=== PATIENT | male | born 1960 | race Caucasian/White ===

== ENCOUNTER 2024-12-09 18:03 | Emergency (ER) | payer BC, SELFPAY ==
--- OUTSIDE RECORDS SUMMARY | 2024-12-09 18:06 | XMS_ITS | Clinical Summary ---
Author Organization [facility] Address [address] [place] [id number] Care Team Providers Care Lead Medical Technologist Name Role Phone Frandy Hunt MD Primary Care Provider [phone] Allergies Active Allergy Reactions Criticality Noted Date Comments Tolterodine *Unknown 12/19/2023 Trospium Other - Describe In Comment Field 04/12/2022 Cognitive deficit Medications aspirin (ECOTRIN) 81 mg enteric coated tablet Take 1 tablet by mouth once daily with a meal. 0 06/26/20 15 Active blood-glucose meterIndications:D iabetes mellitus type 2, uncomplicated (HC) Dispense meter, test strips, lancets covered by pt ins. E11.9 NIDDM type II - Test 1 time/day 1 Device 0 02/28/20 16 Active empagliflozin (JARDIANCE) 10 mg tabletIndications: Type 2 diabetes mellitus without complication, without long-term current use of insulin (HC) Take 1 Tablet (10 mg) by mouth once daily. Take in the morning. 90 Tablet 3 12/23/19 24 Active metFORMIN (GLUCOPHAGE) 1,000 mg tabletIndications: Type 2 diabetes mellitus without complication, without long-term current use of insulin (HC) Take 1 Tablet (1,000 mg) by mouth two times daily with meals. 180 Tablet 3 03/24/20 24 Active atorvastatin (LIPITOR) 10 mg tabletIndications: Other hyperlipidemia Take 1 Tablet (10 mg) by mouth once daily with evening meal. 90 Tablet 4 03/24/20 24 Active tadalafiL (CIALIS) 5 mg tabletIndications: Benign prostatic hyperplasia with urinary frequency Take 1 Tablet (5 mg) by mouth once daily. 90 Tablet 4 03/24/20 24 Active valACYclovir (VALTREX) 1 gram tabletIndications: Herpes TAKE TWO TABLETS BY MOUTH EVERY 12 HOURS FOR 1 DAY; Wait until they call for this. 12 Tablet 3 03/24/20 24 Active Additional Information Patient taking differently: BID PRN, TAKE TWO TABLETS BY MOUTH EVERY 12 HOURS FOR 1 DAY; Wait until they call for this., Reported on 12/06/2024 blood sugar diagnostic (True Metrix Glucose Test Strip) stripIndications:T ype 2 diabetes mellitus without complication, without long-term current use of insulin (HC) TEST DAILY 100 Each 3 03/24/20 24 Active triamcinolone 0.1 % ointmentIndication s:Dermatitis Apply topically to affected area(s) two times daily. Use for up to 2 weeks and take a week off and repeat. 80 g 2 03/24/20 Active Additional Information Patient taking differently:TopicalBID PRN, Use for up to 2 weeks and take a week off and repeat., Reported on 12/06/2024 loratadine-pseudoe phedrine (Claritin-D 12 Hour) 5-120 mg 12hr tablet Take 1 Tablet by mouth every 12 hours if needed. Active docusate 100 mg capsuleIndications :BPH with lower urinary tract symptoms without urinary obstruction Take 1 Capsule (100 mg) by mouth two times daily. 30 Capsule 12/07/2024 11:31 AM CDT 12/08/19 25 Active Active Problems Problem Noted Date Diagnosed Date Depression, recurrent 03/24/2024 Other hyperlipidemia 02/11/2018 ELVIS 05/12/2017 AHI-2.3, REM supine 23 05/26/2017 Primary osteoarthritis of both hips 05/14/2017 Type 2 diabetes mellitus wit hout complication, without long-term current use of insulin 04/03/2016 Overview (10/11/2022): Jardiance would be the diabetes drug to add if needed. Dysthymia 08/21/2015 Overview (08/06/2019): Seasonal Affective Disorder - he uses a light box for 30 minutes a day from March through August and this works well. This started in College. He has tried various SSRIs over an 8 year period and none of them helped. He tried other medications including effexor and wellbutrin that were not effective. He has worked with a therapist over the years but his therapist . He refuses to see a therapist today. Obstructive sleep apnea syndrome 08/21/2015 Overview (08/21/2015): He uses a CPAP machine. Benign nodular prostatic hyp erplasia with lower urinary tract symptoms 08/21/2015 Overview (03/24/2024): Flomax did not improve his symptoms and caused retrograde ejaculation. Scrotal skin lesion 08/05/2014 Adenomatous colon polyp 04/12/2013 Overview (04/25/2023): Colonoscopy 03/2013 polyps repeat in 5 years Colonoscopy 03/2018 normal, long coln, repeat in 5 years, PEG 8L Colonoscopy 04/2023 normal, long, repeat in 7-10 years, PEG 8L Resolved Problems Problem Noted Date Diagnosed Date Resolved Date Primary osteoarthritis of davon th hips with CAM impingement 12/15/2014 05/14/2017 Lumbar radicular pain 12/15/20142016 Encounters Date Type Department Care Team Description 12/06/2024 9:53 AM CDT Anesthesia Event [facility] [address] [place] [address] Caleb Dent MD Shea, Ryan Steven, JERRY 12/06/2024 9:08 AM CDT - 12/06/2024 10:57 AM CDT Surgery [facility] [address] [place] [address] Kevyn Seymour MD ROBOTIC AQUABLATION OF PROSTATE 12/06/2024 7:02 AM CDT - 12/07/2024 6:00 PM CDT Hospital Encounter [facility] [address] [place] [address] Kevyn Seymour MD BPH with lower urinary tract symptoms without urinary obstruction (Primary Dx) Discharge Disposition: Home Self Care 12/06/2024 Travel 12/03/2024 Travel 11/16/2024 Travel 11/09/2024 9:10 AM CDT Office Visit [facility] [address] [facility] [address] Frandy Hunt MD Preoperative Exam (Aquablation 12/07/2023) 11/09/2024 Travel 11/02/2024 8:20 AM CDT Office Visit [facility] [address] [facility] [address] Frandy Hunt MD Diabetes (Routine follow up) 11/02/2024 Travel 10/25/2024 7:15 AM CDT Orders Only [facility] [address] [place] [address] [place], [place] Lab 10/25/2024 Orders Only [facility] [address] [facility] [address] Frandy Hunt MD Lab ([id number] did not cross ) 10/25/2024 Travel 10/13/2024 Telephone [facility] [address] [facility] [address] Frandy Hunt MD Lab (Lab orders needed) from Last 3 Months Immunizations Immunization Administration Dates Next Due AMB INFLUENZA, IIV4 (AGE=>6M OS) MDV (Flu Clinic Only) 04/16/2017 COVID-19 vaccine (Lucio-J&J) PF, MDJackson 1 Influenza A (H1N1), Inactivated 06/29/2009 Influenza Virus, Unspecified 04/07/2020 Influenza, IIV3 (Age >=3 years) 04/17/2015,04/16,05/07/2010 Influenza, IIV4 05/20/2022, 1,04/12/2016,04/21,04/26/2013 Influenza, IIV4 (=>6mos) MDV 05/17/2019, 04/21/2018,04/10/2016,04/10 Influenza, Inactivated IIV3 (Age 65+ Years) Preserv Free 05/12/2024 Influenza, Injectable, Mdck, Quadrivalent, W/preservative 05/08/2023 Pneumococcal Conj 20-valent (Prevnar 20) 04/12/2022 Pneumococcal Poly,23-Valent (Pneumovax) 12/27/2020 RSV, Recombinant ADJ Reconst ituted (Arexvy 120MCG/0.5mL) 01/01/2024 Tdap 02/28/2016 Zoster (Shingrix-RZV, recombinant) 02/11/2018, Family History Medical History Relation Name Comments Dementia Father of non Alz heimer's dementia at 87 Diabetes Father Depression Half-Brother of suicide at 29 Lupus Half-Sister Depression Mother Obesity Mother Relation Name Status Comments Father (Age 87) Half-Brother Half-Sister Alive Mother Social History Tobacco Use Types Packs/Day Years Used Date Smoking Tobacco: Never Passive Smoke Exposure: Never Smokeless Tobacco: Never Tobacco Cessation:Counseling Given: No Alcohol Use Standard Drinks/Week Comments Yes 0 (1 standard drink = 0.6 oz pur e alcohol) rarely PHQ-2 Answer Date Recorded PHQ-2 TOTAL SCORE 2 03/24/2024 Social Connections Answer Date Recorded Do you often feel lonely or isolated from those around you? 0 12/23/2023 Alcohol Use Answer Date Recorded How often do you have a drink containing alcohol ? 2 12/23/2023 How many drinks containing a lcohol do you have on a typical day when you are drinking? 0 12/23/2023 How often do you have five or more drinks on one occasion? 0 12/23/2023 Financial Resource Strain Answer Date R ecorded Difficulty of Paying Living Expenses 3 12/23/2023 Difficulty of Paying Living Expenses Not on file 12/23/2023 Food Insecurity Answer Date Recorded Do you worry your food will run out before you are able to buy more? 1 12/23/2023 Transportation Needs Answer Date Record ed Does lack of transportation keep you from medica l appointments? 1 12/23/2023 Does lack of transportation keep you from work, meetings or getting things that you need? 1 12/23/2023 Housing Stability Answer Date Recorded What is your housing situation today? 1 12/23/2023 Interpersonal Safety Answer Date Record ed Are you being hit, kicked, p ushed or yelled at (see row info)? No 12/06/2024 Interpersonal Safety Abuse 12 - 18 Not on file 12/06/2024 Interpersonal Safety Ambulatory Vulnerability No t on file 12/06/2024 Utilities Answer Date Recorded Do you have trouble paying f or utilities (for example, heat, electricity, water, phone)? 1 12/23/2023 Sex and Gender Information Value Date Recorded Sex Assigned at Not on file Legal Sex Male 5:27 AM PROGRAM DIR Gender Identity Not on file Sexual Orientation Not on file Occupation Industry Job Start Date Job End Date IT Not on file Not on file Not on file Obstetrics History Last Filed Vital Signs Vital Sign Reading Time Taken Comments Blood Pressure 107/53 12/07/2024 7:00 AM CDT Pulse 65 12/07/2024 7:00 AM CDT Temperature 36.9 C (98.4 F) 12/07/2024 7:00 AM CDT Respiratory Rate 16 12/07/2024 4:00 PM CDT Oxygen Saturation 97% 12/07/2024 7:00 AM CDT Inhaled Oxygen Concentration - - Weight 79.8 kg (175 lb 14.4 oz) 12/06/2024 8:41 AM CDT Height 180.3 cm (5' 11) 12/06/2024 8:41 AM CDT Body Mass Index 24.53 12/06/2024 8:41 AM CDT Plan of Treatment Upcoming Encounters Date Type Department Care Team (Late st Contact Info) Description 12/15/2024 9:40 AM CDT Office Visit [facility] [address] [place] [address] Frandy Hunt MD [address] [place] [address] 03/08/2025 7:00 AM CDT Orders Only [facility] [address] [place] [address] [place], [place] 03/15/2025 7:30 AM CDT Office Visit [facility] [address] [place] [address] Frandy Hunt MD [address] [place] [address] Health Maintenance Due Date Last Done Comments COVID-19 vaccine series ( season) 2024 05/12/2024, 05/08/2023, 04/29/2022, Additional history exists Depression screening for age 12+ 03/24/2025 03/24/2024 BMI (ht and wt on same day) for age 18+ 11/09/2025 11/09/2024, 11/02/2024, 06/29/2024, Additional history exists Tetanus booster 02/27/2026 02/28/2016 Lipids for age 45-75 10/25/2029 10/25/2024, 03/19/2024, 12/19/2023, Additional history exists Colonoscopy through age 75 04/22/203004/22, 04/22/2023, 04/22/2023, Additional history exists Tdap Completed 02/28/2016 Zoster (shingles) series for age 50+ Completed 02/11/2018, 11/07/2017 Hepatitis C screening for age 18-79 Completed 10/01/2021 Pneumococcal series for age 50+ Completed 04/12/2022, 12/27/2020 RSV vaccine for adults or Completed 01/01/2024 Influenza Vaccine Completed 05/12/2024, , 05/20/2022, Additional history exists Hepatitis B series for 19+ Aged Out N o longer eligible based on patient's age to complete this topic Procedures Procedure Name Priority Date/Time Associated Diagnosis Comments GLUCOSE METER Timed 12/07/2024 6:08 AM CDT HEMOGLOBIN Early AM 12/07/2024 5:50 AM CDT GLUCOSE METER Timed 12/07/2024 2:40 AM CDT GLUCOSE METER Timed 12/06/2024 10:15 PM CDT GLUCOSE METER Timed 12/06/2024 8:47 PM CDT GLUCOSE METER Timed 12/06/2024 11:11 AM CDT PATH TISSUE EXAM Today 12/06/2024 10:43 AM CDT ENDOTRACHEAL TUBE Routine 12/06/2024 10:07 AM CDT ROBOTIC AQUABLATION OF PROSTATE Tier 2 12/06/2024 9:35 AM CDT Lower urinary tract symptoms due to benign prostatic hypertrophy Case Notes SUPINE GLUCOSE METER Timed 12/06/2024 8:27 AM CDT SCAN-CARDIAC STRIP 12/06/2024 12:00 AM CDT URINE ALBUMIN TO CREATININE RATIO, RANDOM Routine 10/25/2024 8:07 AM CDT Type 2 diabetes mellitus without complication, without long-term current use of insulin (HC) HEMOGLOBIN A1C MONITORING (POCT) Routine 10/25/2024 7:19 AM CDT Type 2 diabetes mellitus without complication, without long-term current use of insulin (HC) BASIC METABOLIC PANEL Routine 10/25/2024 7:11 AM CDT Type 2 diabetes mellitus without complication, without long-term current use of insulin (HC) LIPID PANEL W REFLEX MEASURED LDL Routine 10/25/2024 7:11 AM CDT Other hyperlipidemia VITAMIN B12 Routine 10/25/2024 7:11 AM CDT Type 2 diabetes mellitus without complication, without long-term current use of insulin (HC) COLONOSCOPY SCREENING Routine 04/22/2023 1:30 PM CDT History of colon polyps ANTI HCV Routine 10/01/2021 7:17 AM CDT Need for hepatitis C screening test from Last 3 Months or Most Recently Relevant to Health Maintenance Results * (ABNORMAL) GLUCOSE METER (12/07/2024 6:08 AM CDT) Only the most recent of6 resultswithin the time period is included. GLUCOSE METER 199(H) 65 - 100 mg/dL 12/07/2024 6:08 AM CDT [facility] Blood BLOOD SPECIMEN / Unknown 12/07/2024 6:08 AM CDT 12/07/2024 6:08 AM CDT Kevyn Seymour MD CHEMISTRY Final Res ult Performing Organization Address City/[facility]/ZIP Co de Phone Number [facility] [address] [place] [address], * (ABNORMAL) Hemoglobin (12/07/2024 5:50 AM CDT) HEMOGLOBIN 12.6(L) 13.5 - 17.5 g/dL 12/07/2024 6:14 AM CDT [facility] MCV 85 80 - 100 fL 12/07/2024 6:14 AM CDT [facility] Blood BLOOD SPECIMEN / Unknown Butterfly / Unknown 12/07/2024 5:50 AM CDT 12/07/2024 6:07 AM CDT Kevyn Seymour MD HEMATOLOGY Final Res ult Performing Organization Address [facility] Co de Phone Number [facility] [address] [place] [address], [place] * PATH TISSUE EXAM (12/06/2024 10:43 AM CDT) Case Report Pathology Report Case: [id number] Authorizing Provider: Kevyn Seymour MD Collected: 12/06/2024 1043 Ordering Location: [facility] Received: 12/06/2024 1053 [facility] Pathologist: Jaciel Patel MD Specimen: Prostate 12/07/2024 3:00 PM CDT [facility] Final Diagnosis A) PROSTATE, ROBOTIC AQUA ABLATION: 1. Nodular epithelial and stromal hyperplasia, consistent with benign prostatic hypertrophy 2. No atypical foci, high grade intraepithelial neoplasia, or malignancy 12/07/2024 3:00 PM CDT [facility] ENTRAL LABORATORY at 1500 CDT Clinical Information BPH 12/07/2024 3:00 PM CDT [facility] Gross Description A) Received in formalin, labeled with the patient's name and prostate, is a 2 gram, 2.5 x 2.3 x 1.3 cm aggregate of multiple alvarado rubbery cauterized tissue fragments admixed with blood clot. The tissue is entirely submitted in 2 cassettes. TRB 12/06/2024 12/07/2024 3:00 PM CDT [facility] ENTRAL LAB[facility]ATORY Microscopic Description The final diagnosis is based on microscopic examination of appropriate sections of all specimens. 12/07/2024 3:00 PM CDT [facility]- ENTRAL LABORATORY Additional Information Interpreted at [facility] - [address], [place] [address] 12/07/2024 3:00 PM CDT [facility] Tissue SPECIMEN FROM PROSTATE / Unknown 12/06/2024 10:43 AM CDT 12/06/2024 10:53 AM CDT Kevyn Seymour MD PATHOLOGY/CYTOLOGY Final Result [facility] [address] [place] [address], * HCHG TUBE PR1 (12/06/2024 10:07 AM CDT) Narrative Carloz Colbert CRNA - 12/06/2024 10:07 AM CDT Carloz Colbert CRNA 12/06/2024 10:08 AM Procedure: ETT Patient location during procedure: OR ETT Properties Mask Ventilation: easy Final Technique: direct laryngoscopy Type: straight Location: oral Cuffed: yes Tube Size: 7.5 mmno Laryngoscope Blade: Youngblood Blade Size: 2 Cormack-Lehane Grade View: 1 Insertion Attempts: 1 Placement Verification: auscultation, end tidal CO2 and symmetrical chest wall movement Assessment: pharynx clear, atraumatic and dentition unchanged Secured at: 23 Measured From: lips Difficulty: 0 (not difficult) Caleb Dent MD ANESTHESIA PX NOTE ORDERABLE S Final Result * SCAN-CARDIAC STRIP (12/06/2024 12:00 AM CDT) Narrative 12/06/2024 12:00 AM CDT Ordered by an unspecified provider. Other Clinical Staff OTHER Final Resul t * URINE ALBUMIN TO CREATININE RATIO, RANDOM (10/25/2024 8:07 AM CDT) ALB RAND URINE 12.2 mg/L 10/25/2024 2:14 PM CDT [facility] CREATININE,URIN E 0.94 g/L 10/25/2024 2:14 PM CDT [facility] ALBUMIN TO CREATININE RATIO,RAND UR 13.0 <30.0 mg/g creat 10/25/2024 2:14 PM CDT [facility] Urine URINE SPECIMEN / Unknown Non-Blood / Unknown 10/25/2024 8:07 AM CDT 10/25/2024 8:07 AM CDT Narrative [facility] - 10/25/2024 2:14 PM CDT If Albumin to Creatinine Ratio is elevated, consider the following: Elevations seen with incipient nephropathy associated with diabetes mellitus or hypertension. Stress, exercise,hematuria, and urinary tract infection may also produce elevated results. If clinically indicated, confirm with 24 Hour Albumin to Creatinine Ratio. Frandy Hunt MD URINE Final Resu lt Performing Organization Address City/[facility]/ZIP Co de Phone Number [facility] [address] [place] [address], [place] * (ABNORMAL) HEMOGLOBIN A1C MONITORING (POCT) (10/25/2024 7:19 AM CDT) Pathologist [facility] POC HEMOGLOBIN A1C 6.7(H) <6.0 % OF TOTAL HGB [facility] Comment: Any point of care results exhibiting inconsistency with the patient's clinical status should be repeated using a different testing method. Blood BLOOD SPECIMEN / Unknown 10/25/2024 7:19 AM CDT 10/25/2024 7:19 AM CDT Frandy Hunt MD CHEMISTRY Final Resu lt [facility] [address] [place] [address], [place] [phone] [facility] [address] [place] [address] * LIPID PANEL W REFLEX MEASURED LDL (10/25/2024 7:11 AM CDT) CHOLESTEROL, TOTAL 105 <200 mg/dL [facility] HDL CHOLESTEROL 45 > OR = 40 mg/dL [facility] TRIGLYCERIDES 96 <150 mg/dL [facility] LDL-CHOLESTEROL 42 mg/dL (calc) [facility] Comment: Reference range: <100 Desirable range <100 mg/dL for primary prevention; <70 mg/dL for patients with CHD or diabetic patients with > or = 2 CHD risk factors. LDL-C is now calculated using the Kevon calculation, which is a validated novel method providing better accuracy than the Friedewald equation in the estimation of LDL-C. Jefe SS et al. ZULAY. 2013;310(19): 0106-8861 (http://education.MyRugbyCV.Com/faq/GXA150) CHOL/HDLC RATIO 2.3 <5.0 (calc) [facility] NON HDL CHOLESTEROL 60 <130 mg/dL (calc) [facility] Comment: For patients with diabetes plus 1 major ASCVD risk factor, treating to a non-HDL-C goal of <100 mg/dL (LDL-C of <70 mg/dL) is considered a therapeutic option. Blood BLOOD SPECIMEN / Unknown 10/25/2024 7:11 AM CDT 10/25/2024 7:12 AM CDT us Frandy Hunt MD CHEMISTRY Final Resu lt [facility] [address] [place] [address], [place] [phone] [facility] [address] [place] [address] * VITAMIN B12 (10/25/2024 7:11 AM CDT) VITAMIN B12 232 200 - 1,100 pg/mL [facility] Comment: Please Note: Although the reference range for vitamin B12 is 200-1100 pg/mL, it has been reported that between 5 and 10% of patients with values between 200 and 400 pg/mL may experience neuropsychiatric and hematologic abnormalities due to occult B12 deficiency; less than 1% of patients with values above 400 pg/mL will have symptoms. Blood BLOOD SPECIMEN / Unknown 10/25/2024 7:11 AM CDT 10/25/2024 7:12 AM CDT us Frandy Hunt MD CHEMISTRY Final Resu lt [facility] [address] [place] [address], [facility] [address] [place] [address] * (ABNORMAL) BASIC METABOLIC PANEL (10/25/2024 7:11 AM CDT) Pathologist [facility] GLUCOSE 165(H) 65 - 99 mg/dL [facility] Comment: Fasting reference interval For someone without known diabetes, a glucose value >125 mg/dL indicates that they may have diabetes and this should be confirmed with a follow-up test. UREA NITROGEN (BUN) 24 7 - 25 mg/dL [facility] CREATININE 1.39(H) 0.70 - 1.35 mg/dL [facility] EGFR 56(L) > OR = 60 mL/min/1.7 3m2 [facility] BUN/CREATININE RATIO 17 6 - 22 (calc) [facility] SODIUM 143 135 - 146 mmol/L [facility] POTASSIUM 4.6 3.5 - 5.3 mmol/L [facility] CHLORIDE 106 98 - 110 mmol/L [facility] CARBON DIOXIDE 30 20 - 32 mmol/L [facility] ELECTROLYTE BALANCE 7 7 - 17 mmol/L (calc) [facility] CALCIUM 9.7 8.6 - 10.3 mg/dL [facility] Blood BLOOD SPECIMEN / Unknown 10/25/2024 7:11 AM CDT 10/25/2024 7:12 AM CDT us Frandy Hunt MD CHEMISTRY Final Resu lt [facility] [address] [place] [address], [facility] [address] [place] [address] * COLONOSCOPY (04/22/2023 1:54 PM CDT) 04/22/2023 1:54 PM CDT Narrative Transcriptions Jefe Valdivia MD - 04/22/2023 2:52 PM CDT Patient Name: Curly Collier Procedure Date: 04/22/2023 Gender: Male Date of : 1960 Admit Type: Outpatient Procedure: Colonoscopy Proceduralist: Jefe Valdivia MD , Iris Birch (Nurse), Paula Gruber (Nurse) Indications/Pre-Op Diagnosis: High risk colon cancer surveillance:Personal history of adenoma less than 10 mm in size, Last colonoscopy: March 2018, Incidental diarrhea noted Medications: Fentanyl 100 micrograms IV, Midazolam 2 mgIV, The level of sedation administered wasmoderate Procedure Description: The patient had risks, benefits and alternatives explained to andgave informed consent. The patient had a stable cardiopulmonary status and judged an adequate candidate for conscious sedation. The endoscope [id number] was passed through the anus andadvanced to 2 cm into the ileum. The colonoscopy was performed without difficulty. The patient tolerated the procedure well. The quality ofthe bowel preparation was good. The terminal ileum, ileocecal valve, appendiceal orifice, and rectum were photographed. Complications: No immediate complications. Estimated Blood Loss & Specimen: Estimated blood loss: none. Specimen collected - Yes and sent to Laboratory Findings: The perianal and digital rectal examinations were normal. The terminal ileum appeared normal. The entire examined colon appeared normal on direct and retroflexion views. Biopsies for histology were taken with a cold forceps from the entire colon for evaluation of microscopic colitis. Impressions/Post-Op Diagnosis: - The examined portion of the ileum was normal. - The entire examined colon is normal on direct and retroflexionviews. - Biopsies were taken with a cold forceps from the entire colon for evaluation of microscopic colitis. Recommendation: - Patient has a contact number available for emergencies. The signsand symptoms of potential delayed complications were discussed with the patient. Return to normal activities tomorrow. Written discharge instructions were provided to the patient. - Resume previous diet. - Continue present medications. - Await pathology results. - Repeat colonoscopy in 7-10 years for surveillance. Moderate Sedation: A time out was performed before the procedure. Moderate (conscious) sedation was administered by the endoscopy nurse and supervised bythe endoscopist. The following parameters were monitored: oxygensaturation, heart rate, blood pressure, EKG, CO2, respiratory rate, adequacy of pulmonary ventilation and reponse to care. Please refer to the patient's medical record flowsheets and nursing notes for moderate sedation details. Total physician intraservice time was 29 minutes. Jefe Valdivia MD 04/22/2023 2:52:28 PM This report has been signed electronically. Note Initiated On: 04/22/2023 1:54 PM Procedure Code(s): --- Professional --- 26668, Colonoscopy, flexible; with biopsy, single or multiple Diagnosis Code(s): --- Professional --- Z86.010, Personal history of colonicpolyps CPT copyright 2021 [employer]. All rights reserved. The codes documented in this report are preliminary and upon financial aid advisor reviewmay be revised to meet current compliance requirements. Scope In: 2:21:42 PM Scope Withdrawal Time 0 hours 14 minutes 34 seconds Scope Out: 2:47:09 PM us Jefe Valdivia MD PROCEDURE ORD Final Res ult * ANTI HCV (10/01/2021 7:17 AM CDT) HEPATITIS C ANTIBODY Non-React isha Non-React isha 10/01/2021 4:53 PM CDT [facility] Comment:Antibodies to HCV no t detected; does not exclude the possibility of exposure to HCV. Blood BLOOD SPECIMEN / Unknown Venipuncture / Unknown 10/01/2021 7:17 AM CDT 10/01/2021 7:20 AM CDT us Frandy Hunt MD SEND OUTS Final Resu lt [facility] [address] [place] [address], from Last 3 Months or Most Recently Relevant to Health Maintenance Insurance [facility] NON-SC-ITS Advance Directives * Full Code (Latest Code Status on File) Date Activated Date Inactivated Comments 12/06/2024 7:42 AM 12/07/2024 8:41 PM Question Answer Comments Code Status Discussion: Unable to Assess Preferences, Provider to review later Care Teams Lead Medical Technologist Relationship Specialty Start Date End Date Frandy Hunt MD [address] [place] [address] PCP - General Family Practice 08/16/15 [facility] 06/20/22
[2024-12-09 18:10] VITALS: BP 151/89; PULSE 68; RESP 16; TEMP 36.9; O2SAT 98; BMI 24.5
--- NOTE | 2024-12-09 19:03 | ED.GENADULT ---
HPI - General Adult General Chief complaint: Urogenital Problems, Male Stated complaint: catheter issues Time Seen by Provider: 12/09/24 18:30 Source: patient Mode of arrival: ambulatory Limitations: no limitations History of Present Illness HPI narrative: 64-year-old male presenting today with abdominal discomfort secondary to a blocked catheter. Patient had prostate surgery on Friday, discharged home on Friday without a catheter. Abdomen Ca to catheter placed secondary to urinary retention. Today approximately 4 hours ago he states that his catheter stops draining and he complains of mild suprapubic discomfort. Postop course has otherwise been unremarkable. Related Data Home Medications ?Medication ?Instructions ?Recorded ?Confirmed aspirin 81 mg capsule 81 mg PO DAILY 12/09/24 12/09/24 atorvastatin 10 mg tablet 10 mg PO QPM 12/09/24 12/09/24 empagliflozin 10 mg tablet 10 mg PO QAM 12/09/24 12/09/24 (Jardiance) hyoscyamine sulfate 0.125 mg 0.125 mg sublingual Q4H PRN 12/09/24 12/09/24 sublingual tablet bladder muscle dysfunction metformin 1,000 mg tablet 1,000 mg PO BID 12/09/24 12/09/24 tadalafil 5 mg tablet 5 mg PO DAILY 12/09/24 12/09/24 triamcinolone acetonide 0.1 % topical 12/09/24 topical ointment Review of Systems Status of ROS: Reports: 6 or more systems reviewed and unremarkable except as noted in History and below Exam Narrative: Exam Narrative: I examined the patient after his catheter was flushed. Vital is stable. Well-nourished well-developed patient in no acute distress. Alert and oriented. Answers questions appropriately. Mood and affect are appropriate. Thoughts are goal oriented and rational. No tangential or magical thinking noted. Patient speaks in full sentences without needing to catch his breath. HEENT: Normocephalic atraumatic. Extraocular muscles are intact. Conjunctivae are moist without any icterus noted. Moist mucous membranes. Abdomen: Soft and nontender nondistended with normal bowel sounds. No guarding or rebound. Extremities: Bilateral lower extremities are without edema. Skin: Well perfused without any obvious rashes. Const: Vital Signs, click to edit/add: Vital Signs - 24 hr 12/09/24 18:10 Temperature 98.5 F Pulse Rate [Pulse Oximeter] 68 Respiratory Rate 16 Blood Pressure [Ri ght Upper Arm] 151/89 H Pulse Oximetry 98 Oxygen Delivery Me thod Room Air Course Course ED Course: Per nursing staff, catheter was flushed without difficulty. Most a L of urine drained. Urine clear with pink tint. Host flushed bladder scan showed no significant residual urine. Catheter draining without difficulty. Vital Signs Vital signs: Initial Vital Signs Temperature 98.5 F 12/09/24 18:10 Temperature Source Temporal Artery Scan 12/09/24 18:10 Pulse Rate 68 12/09/24 18:10 Respiratory Rate 16 12/09/24 18:10 Blood Pressure 151/89 H 12/09/24 18:10 Blood Pressure Mean 109 H 12/09/24 18:10 Blood Pressure Position Sitting 12/09/24 18:10 Pulse Oximetry 98 12/09/24 18:10 Oxygen Delivery Method Room Air 12/09/24 18:10 Vital Signs Temperature 98.5 F 12/09/24 18:10 Pulse Rate 68 12/09/24 18:10 Respiratory Rate 16 12/09/24 18:10 Blood Pressure 151/89 H 12/09/24 18:10 Pulse Oximetry 98 12/09/24 18:10 Oxygen Delivery Method Room Air 12/09/24 18:10 Temperature 98.5 F 12/09/24 18:10 Pulse Rate 68 12/09/24 18:10 Respiratory Rate 16 12/09/24 18:10 Blood Pressure 151/89 H 12/09/24 18:10 Pulse Oximetry 98 12/09/24 18:10 Oxygen Delivery Method Room Air 12/09/24 18:10 Medical Decision Making MDM Narrative Medical decision making narrative: Catheter malfunction. Flushed in the ED with great results. Follow-up as needed. Discharge Plan Discharge Clinical Impression: Malfunction of indwelling urinary catheter Patient Disposition: Home, Self-Care Condition: Improved Additional Instructions: Follow-up as needed. Should catheter malfunction again, return to the emergency department. Prescriptions: No Action atorvastatin 10 mg tablet 10 mg PO QPM metformin 1,000 mg tablet 1,000 mg PO BID triamcinolone acetonide 0.1 % ointment topical hyoscyamine sulfate 0.125 mg tablet, sublingual 0.125 mg sublingual Q4H PRN (Reason: bladder muscle dysfunction) tadalafil 5 mg tablet 5 mg PO DAILY Jardiance 10 mg tablet 10 mg PO QAM aspirin 81 mg capsule 81 mg PO DAILY Follow Up/Referrals: Frandy Hunt MD [Primary Care Provider, Family Practice] Stand Alone Forms: ChangeTip Info Instructions
--- OUTSIDE RECORDS SUMMARY | 2024-12-09 19:21 | XMS_ITS | Continuity of Care Document ---
Author Organization [facility] Address [address] 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 Plan of Treatment Reminders Order Date Submit Date Provider Last Modified By Organization Details Last Modified Time Details Appointments LAB 30 2024 11:30A [facility] Not available Not available Not available Lab None recorded. Referral None recorded. Procedures None recorded. Surgeries None recorded. Imaging None recorded. Medication Orders Levsin/SL 0.125 mg sublingua l tablet [address], [address], 12/08/2024 17:55:07 Patient TargetsNo targets recorded. Patient InstructionsNo instructions recorded. Reason for Referral None Reported. Problems Name Problem SNOMED Code Status Onset Date Resolution Date Notes Provider Name and Address Organization Details Recorded Time Increased frequency of urination 027952560 Active 2014 788.41 : FREQUENCY Not Available [facility] 0 02:08:51 Nocturia 317709445 Active 2014 788.43 : NOCTURIA Not Available [facility] 0 02:08:51 Retention of urine 007006197 Active 2024 Olga christine [facility] 5 17:55:27 Problem Notes None recorded. Procedures Surgical History Date Name Laterality Status Provider Name and Address Organization Details Recorded Time 12/09/19 25 Diaz Catheter Insertion completed Olga Irene [facility] 12/08/2024 17:59:21 12/09/19 25 Bladder Irrigation completed Olga Irene [facility] 12/08/2024 17:59:11 12/07/19 25 TRANSURETHRAL WATERJET ABLATION OF PROSTATE, COMPLETE (SURG) completed Cheyanne Arellano [facility] 12/06/2024 14:43:22 03/10/20 24 Bladder Scan cancelled Ariadne Ocampo [facility] 03/05/2024 12:36:31 01/15/20 24 Cystoscopy- male completed Kevyn Seymour MD [address] [place] [address],[address], [place], [address], [facility] 01/15/2024 10:50:17 01/15/20 24 COMPLEX VISIT completed Kevyn Seymour MD [address] [place] [address],[address], [place], [address], [facility] 01/15/2024 10:51:33 01/15/20 24 TRUS- Volume size only completed Kevyn Seymour MD [address] [place] [address],[address], [place], [address], [facility] 01/15/2024 10:50:23 01/15/20 24 Sulfa post Cysto completed Ariadne Martinez [facility] 01/15/2024 10:02:22 10/09/19 24 UroCuff completed Demetrice Wyman [facility] 10/09/2023 14:30:05 10/09/19 24 Bladder Scan completed Demetrice Wyman [facility] 10/09/2023 14:28:57 07/03/20 23 Bladder Scan completed Kevyn Seymour MD [address] [place] [address],[address], [place], [address], [facility] 07/03/2023 15:59:09 Imaging Results None recorded. Procedure Notes None recorded. Medical Equipment None Reported. Allergies Allergen ID Allergen Name Allergen Category Reaction Reaction Severity Criticality Documentation Date Start Date Code Code System Note Provider Name and Address Organization Details Recorded Time 588702 tolterodi ne medicatio n Not available Not available Not available 07/03/2023 67272 5 RxNorm patie nt uncer tain of aller gy/un known react ion Ariadnechani christine, [facility] 16:01:17 Medications Name Sig Start Date Stop Date Status Note LastModified by Organization Details LastModified Time clotrimazol e 10 mg rupal DISSOLVE 1 TABLET (10 MG) IN THE MOUTH 5 TIMES DAILY FOR 14 DAYS. 07/03 completed Not Available Not Available Not Available atorvastati n 10 mg tablet TAKE 1 TABLET (10 MG) BY MOUTH ONCE DAILY WITH EVENING MEAL. active Not Available Not Available No t Available valacyclovi r 1 gram tablet TAKE TWO TABLETS BY MOUTH EVERY 12 HOURS FOR 1 DAY; WAIT UNTIL THEY CALL FOR THIS. active Not Available Not Available No t Available metformin 1,000 mg tablet TAKE 1 TABLET (1,000 MG) BY MOUTH TWO TIMES DAILY WITH MEALS. active Not Available Not Available No t Available Levsin/SL 0.125 mg sublingual tablet take q4hrs prn for bladder spasms 2024 active Not Available Not Available Not Avai lable tadalafil 5 mg tablet TAKE 1 TABLET (5 MG) BY MOUTH ONCE DAILY. active Not Available Not Available No t Available peg 3350-electr olytes 236 gram-22.74 gram-6.74 gram-5.86 gram solution TAKE 4,000 ML BY MOUTH ONE TIME FOR 1 DOSE. PATIENT NEEDS A TOTAL OF 2 GALLONS PREP, PATIENT RECEIVED 1 GALLON. 10/15 completed Not Available Not Available Not Available Myrbetriq 50 mg tablet,exte nded release TAKE ONE TABLET BY MOUTH EVERY DAY active Not Available Not Available No t Available Jardiance 10 mg tablet TAKE 1 TABLET (10 MG) BY MOUTH ONCE DAILY IN THE MORNING. active Not Available Not Available No t Available Vitals Date Recorded Body height Provider Name an d Address Organization Details Last Updated DateTime 12/08/2024 179.07 cm Olga Irene [facility] 12/08/2024 17:55:18 Social History Question Answer Notes LastModified by Organizat ion Details LastModified Time Tobacco Smoking Status Never Smoker Kevyn Seymour MD [address], [place], [address], [facility] 07/03/2023 15:58:00 What Was The Date Of Your Most Recent Tobacco Screening? 01/15/2024 Information not available 01/15/2024 Has Tobacco Cessation Counseling Been Provided? No Information not available 10/16/2023 How Many Days In The Past Year Have You Consumed 5 Or More Drinks? 0 Information not available 07/03/2023 Sex: Unknown Functional Status Question Answer Note LastModified by Organizat ion Details LastModified Time Do you or have you ever used any other forms of tobacco or nicotine? No Information not available 10/16/2023 What is your level of alcohol consumption? Occasional Information not available 07/03/2023 Mental Status None recorded. Family History Nothing Reported. Medical History Condition Response Diabetes Y Sexually Transmitted Infection N Other N Bleeding Disorder N High Blood Pressure N Kidney Stones N Cancer N Lung Disease N Depression N High Cholesterol Y GERD/Acid Reflux N Heart Disease N Immunizations Vaccine Type Date Status Note Provider Nam e and Address Organization Details Recorded Time Influenza, split virus, quadrivalent, preservative 0 completed Kevyn Seymour MD [address] [place] [address],[address], [address], [facility] 07/03/2023 15:56:15 Influenza, split virus, quadrivalent, preservative 5 completed Kevyn Seymour MD [address] [place] [address],[address], [address], [facility] 07/03/2023 15:56:15 Influenza, split virus, quadrivalent, preservative 6 completed Kevyn Seymour MD [address] [place] [address],[address], [address], [facility] 07/03/2023 15:56:15 Influenza, split virus, quadrivalent, preservative 7 completed Kevyn Seymour MD [address] [place] [address],[address], [address], [facility] 07/03/2023 15:56:15 Influenza, split virus, quadrivalent, preservative 8 completed Kevyn Seymour MD [address] [place] [address],[address], [address], [facility] 07/03/2023 15:56:15 Influenza, split virus, quadrivalent, preservative 9 completed Kevyn Seymour MD [address] [place] [address],[address], [place], [address], [facility] 07/03/2023 15:56:15 Influenza, MDCK, quadrivalent, preservative 3 completed Kevyn Seymour MD [address] [place] [address],[address], [place], [address], [facility] 07/03/2023 15:56:15 zoster recombinant 8 completed Kevyn Seymour MD [address] [place] [address],[address], [place], [address], [facility] 07/03/2023 15:56:15 zoster recombinant 8 completed Kevyn Seymour MD [address] [place] [address],[address], [place], [address], [facility] 07/03/2023 15:56:15 COVID-19, mRNA, LNP-S, PF, 100 mcg/0.5mL dose or 50 mcg/0.25mL dose 2 completed Kevyn Seymour MD [address] [place] [address],[address], [place], [address], [facility] 07/03/2023 15:56:15 COVID-19, mRNA, LNP-S, PF, 100 mcg/0.5mL dose or 50 mcg/0.25mL dose 1 completed Kevyn Seymour MD [address] [place] [address],[address] [place] [address], [address], [facility] 07/03/2023 15:56:15 COVID-19 vaccine, vector-nr, rS-Ad26, PF, 0.5 mL 1 completed Kevyn Seymour MD [address] [place] [address],[address], [place], [address], [facility] 07/03/2023 15:56:15 Pneumococcal conjugate PCV20, polysaccharide VGI771 conjugate, adjuvant, PF 2 completed Kevyn Seymour MD [address] [place] [address],[address], [place], [address], [facility] 07/03/2023 15:56:15 COVID-19, mRNA, LNP-S, bivalent, PF, 50 mcg/0.5 mL or 25mcg/0.25 mL dose 2 completed Kevyn Seymour MD [address] [place] [address],[address], [place], [address], [facility] 07/03/2023 15:56:15 COVID-19, mRNA, LNP-S, PF, 50 mcg/0.5 mL 3 completed Kevyn Seymour MD [address] [place] [address],[address], [place], [address], [facility] 07/03/2023 15:56:15 pneumococcal polysaccharide PPV23 1 completed Kevyn Seymour MD [address] [place] [address],[address], [address], [facility] 07/03/2023 15:56:15 Tdap 6 completed Kevyn Seymour MD [address] [place] [address],[address], [address], [facility] 07/03/2023 15:56:15 Novel [id number], all formulations 9 completed Kevyn Seymour MD [address] [place] [address],[address], [address], [facility] 07/03/2023 15:56:15 Influenza, split virus, trivalent, preservative 1 completed Kevyn Seymour MD [address] [place] [address],[address], [place], [address], [facility] 07/03/2023 15:56:15 Influenza, split virus, trivalent, preservative 5 completed Kevyn Seymour MD [address] [place] [address],[address], [place], [address], [facility] 07/03/2023 15:56:15 Influenza, split virus, trivalent, preservative 0 completed Kevyn Seymour MD [address] [place] [address],[address], [place], [address], [facility] 07/03/2023 15:56:15 Influenza, split virus, quadrivalent, PF 1 completed Kevyn Seymour MD [address] [place] [address],[address], [place], [address], [facility] 07/03/2023 15:56:15 Influenza, split virus, quadrivalent, PF 4 completed Kevyn Seymour MD [address] [place] [address],[address], [place], [address], [facility] 07/03/2023 15:56:15 Influenza, split virus, quadrivalent, PF 3 completed Kevyn Seymour MD [address] [place] [address],[address], [place], [address], [facility] 07/03/2023 15:56:15 Influenza, split virus, quadrivalent, PF 2 completed Kevyn Seymour MD [address] [place] [address],[address] [place] [address], [address], [facility] 07/03/2023 15:56:15 RSV, recombinant, protein subunit RSVpreF, adjuvant reconstituted, 0.5 mL, PF 4 completed Ariadne Martinez [facility] 01/15/2024 09:52:12 Past Encounters Encounter ID Performer Location Encounter Start Date Encounter Closed Date Diagnosis/Indication Diagnosis SNOMED-CT Code Diagnosis ICD10 Code Diagnosis Note [id number] Kevyn Seymour MD [facility] [address] [place] [address] 12/08/2024 16:48:40 12/09/2024 09:26:09 Lower urinary tract symptoms due to benign prostatic hypertrophy 0702144883 9101 N40.1 s/p prostate aquablatio n with Dr. Seymour on 12/06- unfortunat ammon, not able to adequately empty since being discharge home without diaz yesterday2 2F diaz replaced, hand irrigated for clotsWill keep diaz until next week then f/u on nursing schedule for TOV on 12/14Given cipro 500mg dose today Retention of urine 84927 4002 R33.9 Health Concerns Section Related Observation LastModified by Organization Detai ls LastModified Time None Recorded Concern Status LastModified by Organization Details LastModified Time None Recorded Payers Encounter Date Sequence Insurance Name Policy Number Policy Tang Covered Member ID Tang Member ID Guarantor Name 12/08/[address] [facility] [id number] Arlin Romano [id number] Curly Martin Nando Notes Date Note Type Note Provider Name and Address Organization Details Recorded Time 12/08/2024 text/html Pt is s/p prosta te aquablation with Dr. Seymour on Friday- 12/06. He was discharged from the hospital yesterday- had narrowly passed TOV reportedly and was adamant on not having diaz replaced. Unfortunately, was unable to void adequately since hospital discharge with increasing abdominal fullness and discomfort as well as passage of clots. He presents today for evaluation. BUS is 600cc. 22F diaz replaced for about 800cc of brown colored urine, he was then hand irrigated for return of numerous moderately sized clots. RITIKA BARNES [address], [place], [address], [facility] 12/09/2024 12:32:14
--- OUTSIDE RECORDS SUMMARY | 2024-12-09 19:21 | XMS_ITS | Data Portability ---
Author Organization [facility], [facility] Address [address] [place] [address] Care Team Providers Care Special Needs Babysitter Name Role Phone FORREST HANCOCK Primary Care Provider Assessment Encounter Date Assessment Date Assessment LastModified by Organization Details LastModified Time 07/03/2023 07/03/2023 62-year-old male with urinary frequency, urinary urgency, nocturia, and sensation of incomplete emptying. Not available 07/03/2023 17:34:51 10/16/2023 10/16/2023 63-year-old male with urinary frequency, urinary urgency, nocturia, and sensation of incomplete Of note a total of 25 minutes was spent: preparing to see the patient by reviewing records, images, and laboratory data; obtaining/revie wing separately obtained history; performing physical examination, counseling and educating patient/family/ caregiver; ordering appropriate medications, labs, imaging or procedures; documenting the clinical encounter; and coordination of care. Not available 10/16/2023 10:16:50 01/15/2024 01/15/2024 63-year-old male with urinary frequency, urinary urgency, nocturia, and sensation of incomplete Not available 01/15/2024 10:51:23 Plan of Treatment Reminders Order Date Submit Date Provider Last Modified By Organization Details Last Modified Time Details Appointments LAB 30 2024 11:30A M [facility] Not available Not available Not available Lab None recorded. Referral None recorded. Procedures None recorded. Surgeries transuret hral waterjet ablation of prostate, complete (SURG) 2023 024 [email or web address] 0 Not available 09/30/2024 17:50:43 Imaging None recorded. Medication Orders Levsin/SL 0.125 mg sublingua l tablet 2024 025 [facility], [address] [place], [address], 12/08/2024 17:55:07 Myrbetriq 50 mg tablet,ex tended release 2022 023 [facility], [address] [place], [address], 09/16/2023 16:30:52 Patient TargetsNo targets recorded. Patient Instructions Encounter Date Encounter Id Patient Instructions Last Modified By Organization Details Last Modified Time 10/16/2023 [id number] Procedure Description: The Aquablation procedure is a minimally invasive surgical technique used to treat benign prostatic hyperplasia (BPH). During the procedure, a combination of imaging and robotics is utilized to deliver a high-velocity waterjet to precisely remove excess prostate tissue, thus relieving urinary symptoms associated with BPH. The procedure is performed under general or regional anesthesia. Benefits: Improved urinary symptoms: Aquablation has shown efficacy in improving urinary flow, reducing urinary frequency, urgency, and nocturia, and relieving other symptoms caused by BPH. Preserved sexual function: The Aquablation procedure aims to preserve sexual function, including erectile function and ejaculation. Risks and Complications: While Aquablation is generally considered safe, there are potential risks and complications associated with the procedure, including but not limited to: (1) Bleeding: In rare cases, excessive bleeding may occur during or after the procedure, requiring blood transfusion or further intervention. (2) Infection: There is a risk of infection at the surgical site, urinary tract, or elsewhere in the body, which may necessitate antibiotic treatment. (3) Urinary retention: Difficulty or inability to urinate immediately after the procedure may occur, necessitating the placement of a temporary urinary catheter. (4) Urinary incontinence: There is a small risk of temporary or, in rare cases, permanent urinary incontinence. (5) Sexual dysfunction: While efforts are made to preserve sexual function, there is a possibility of erectile dysfunction, retrograde ejaculation, or other changes in sexual function. (6) Transurethral resection of the prostate (TURP) conversion: In rare instances, if the Aquablation procedure is deemed unsuccessful or unsafe, conversion to TURP or other interventions may be necessary. Not available 10/16/2023 10:15:59 Reason for Referral None Reported. Results Created Date Observation Date Name Description Value Unit Range Abnormal Flag Note LastModifiedBy Organization Detail LastModifiedTime 01/29/20 24 01/15/2024 US, prost ate No observ ation record ed. [email or web address] Not Available 01/18 13:46:15 Result Notes None recorded. Problems Name Problem SNOMED Code Status Onset Date Resolution Date Notes Provider Name and Address Organization Details Recorded Time Increased frequency of urination 955833520 Active 2014 788.41 : FREQUENCY Not Available [facility] 0 02:08:51 Nocturia 733283364 Active 2014 788.43 : NOCTURIA Not Available [facility] 0 02:08:51 Retention of urine 878280869 Active 2024 Olga christine [facility] 5 17:55:27 Problem Notes None recorded. Procedures Surgical History Date Name Laterality Status Provider Name and Address Organization Details Recorded Time 12/09/19 25 Diaz Catheter Insertion completed Olga Irene [facility] 12/08/2024 17:59:21 12/09/19 25 Bladder Irrigation completed Olga Irene [facility] 12/08/2024 17:59:11 12/07/19 25 TRANSURETHRAL WATERJET ABLATION OF PROSTATE, COMPLETE (SURG) completed Cheyanne Arellano [facility] 12/06/2024 14:43:22 03/10/20 24 Bladder Scan cancelled Ariadne Damaris [facility] 03/05/2024 12:36:31 01/15/20 24 Cystoscopy- male completed Kevyn Seymour MD [address] [place] [address],[address], [place], [address], [facility] 01/15/2024 10:50:17 01/15/20 24 COMPLEX VISIT completed Kevyn Seymour MD [address] [place] [address],[address], [place], [address], [facility] 01/15/2024 10:51:33 01/15/20 24 TRUS- Volume size only completed Kevyn Seymour MD [address], [place], [address], [facility] 01/15/2024 10:50:23 01/15/20 24 Sulfa post Cysto completed Ariadne Martinez [facility] 01/15/2024 10:02:22 10/09/19 24 UroCuff completed Demetrice Wyman [facility] 10/09/2023 14:30:05 10/09/19 24 Bladder Scan completed Demetrice Wyman [facility] 10/09/2023 14:28:57 07/03/20 23 Bladder Scan completed Kevyn Seymour MD [address] [place] [address],[address], [place], [address], [facility] 07/03/2023 15:59:09 Imaging Results Imaging Date Name Status LastModified by Organiz ation Details LastModified Time 01/15/2024 US, prostate completed Information not available 01/29/2024 13:46:15 Procedure Notes None recorded. Medical Equipment None Reported. Allergies Allergen ID Allergen Name Allergen Category Reaction Reaction Severity Criticality Documentation Date Start Date Code Code System Note Provider Name and Address Organization Details Recorded Time 165571 tolterodi ne medicatio n Not available Not available Not available 07/03/2023 71408 5 RxNorm patie nt uncer tain of aller gy/un known react ion Ariadne Doran t null, [facility] 16:01:17 Medications Name Sig Start Date Stop [...] t Available Vitals Date Recorded Body height Body mass index (BMI) Body weight Provider Name and Address Organization Details Last Updated DateTime 07/03/2023 179.07 cm 26.2 kg/m2 96287.59 g Kevyn Seymour MD [address] [place] [address],[address], [address], [facility] 07/03/2023 15:56:04 Date Recorded Body height Body mass index (BMI) Body weight Provider Name and Address Organization Details Last Updated DateTime 10/16/2023 179.07 cm 26.2 kg/m2 07254.59 g Ariadne Martinez [facility] 10/16/2023 09:09:10 Date Recorded Body height Body mass index (BMI) Body weight Provider Name and Address Organization Details Last Updated DateTime 01/15/2024 179.07 cm 26.2 kg/m2 42186.59 g Ariadne Martinez [facility] 01/15/2024 09:51:43 Date Recorded Body height Provider Name an d Address Organization Details Last Updated DateTime 12/08/2024 179.07 cm Olga Teto [facility] 12/08/2024 17:55:18 Social History Question Answer Notes LastModified by Organizat ion Details LastModified Time Tobacco Smoking Status Never Smoker Kevyn Seymour MD [address] [place], [place] [address], [address], [facility] 07/03/2023 15:58:00 What Was The Date Of [...] History Nothing Reported. Medical History Condition Response Other N High Blood Pressure N Kidney Stones N Lung Disease N Depression N GERD/Acid Reflux N Diabetes Y Sexually Transmitted Infection N Bleeding Disorder N Cancer N High Cholesterol Y Heart Disease N Immunizations Vaccine Type Date Status Note Provider Nam e and Address Organization Details Recorded Time Influenza, split virus, quadrivalent, preservative 0 completed Kevyn Seymour MD [address] [place] [address], [address], [facility] 07/03/2023 15:56:15 Influenza, split virus, quadrivalent, preservative 5 completed Kevyn Seymour MD [address] [place] [address], [address], [facility] 07/03/2023 15:56:15 Influenza, split virus, quadrivalent, preservative 6 completed Kevyn Seymour MD [address] [place] [address],[address], [address], [facility] 07/03/2023 15:56:15 Influenza, split virus, quadrivalent, preservative 7 completed Kevyn Seymour MD [address] [place] [address],[address], [address], [facility] 07/03/2023 15:56:15 Influenza, split virus, quadrivalent, preservative 8 completed Kevyn Seymour MD [address] [place] [address],[address], [place], [address], [facility] 07/03/2023 15:56:15 Influenza, split virus, quadrivalent, preservative 9 completed Kevyn Seymour MD [address] [place] [address],[address], [place], [address], [facility] 07/03/2023 15:56:15 Influenza, MDCK, quadrivalent, preservative 3 completed Kevyn Seymour MD [address] [place] [address],[address], [place], [address], [facility] 07/03/2023 15:56:15 zoster recombinant 8 completed Kevyn Seymour MD [address] [place] [address],[address], [place], [address], [facility] 07/03/2023 15:56:15 zoster recombinant 8 completed Kevyn Seymour MD [address] [place] [address],[address] [place] [address], [address], [facility] 07/03/2023 15:56:15 COVID-19, mRNA, LNP-S, PF, 100 mcg/0.5mL dose or 50 mcg/0.25mL dose 2 completed Kevyn Seymour MD [address] [place] [address],[address], [place], [address], [facility] 07/03/2023 15:56:15 COVID-19, mRNA, LNP-S, PF, 100 mcg/0.5mL dose or 50 mcg/0.25mL dose 1 completed Kevyn Seymour MD [address] [place] [address],[address], [place], [address], [facility] 07/03/2023 15:56:15 COVID-19 vaccine, vector-nr, rS-Ad26, PF, 0.5 mL 1 completed Kevyn Seymour MD [address] [place] [address],[address], [place], [address], [facility] 07/03/2023 15:56:15 Pneumococcal conjugate PCV20, polysaccharide [id number] conjugate, adjuvant, PF 2 completed Kevyn Seymour MD [address] [place] [address],[address], [place], [address], [facility] 07/03/2023 15:56:15 COVID-19, mRNA, LNP-S, bivalent, PF, 50 mcg/0.5 mL or 25mcg/0.25 mL dose 2 completed Kevyn Seymour MD [address] [place] [address],[address], [place], [address], [facility] 07/03/2023 15:56:15 COVID-19, mRNA, LNP-S, PF, 50 mcg/0.5 mL 3 completed Kevyn Seymour MD [address] [place] [address],[address], [place], [address], [facility] 07/03/2023 15:56:15 pneumococcal polysaccharide PPV23 1 completed Kevyn Seymour MD [address] [place] [address],[address], [place], [address], [facility] 07/03/2023 15:56:15 Tdap 6 completed Kevyn Seymour MD [address] [place] [address],[address], [place], [address], [facility] 07/03/2023 15:56:15 Novel Eysgvulby-B8X5-64, all formulations 9 completed Kevyn Seymour MD [address] [place] [address],[address], [place], [address], [facility] 07/03/2023 15:56:15 Influenza, split virus, trivalent, preservative 1 completed Kevyn Seymour MD [address] [place] [address],[address], [place], [address], [facility] 07/03/2023 15:56:15 Influenza, split virus, trivalent, preservative 5 completed Kevyn Seymour MD [address] [place] [address],[address], [place], [address], [facility] 07/03/2023 15:56:15 Influenza, split virus, trivalent, preservative 0 completed Kevyn Seymour MD [address] [place] [address],[address] [place] [address], [address], [facility] 07/03/2023 15:56:15 Influenza, split virus, quadrivalent, PF 1 completed Kevyn Seymour MD [address] [place] [address],[address] [place] [address], [address], [facility] 07/03/2023 15:56:15 Influenza, split virus, quadrivalent, PF 4 completed Kevyn Seymour MD [address] [place] [address],[address] [place] [address], [address], [facility] 07/03/2023 15:56:15 Influenza, split virus, quadrivalent, PF 3 completed Kevyn Seymour MD [address] [place] [address],[address], [address], [facility] 07/03/2023 15:56:15 Influenza, split virus, quadrivalent, PF 2 completed Kevyn Seymour MD [address] [place] [address],[address], [address], [facility] 07/03/2023 15:56:15 RSV, recombinant, protein subunit RSVpreF, adjuvant reconstituted, 0.5 mL, PF 4 completed Ariadne Martinez [facility] 01/15/2024 09:52:12 Past Encounters Encounter ID Performer Location Encounter Start Date Encounter Closed Date Diagnosis/Indication Diagnosis SNOMED-CT Code Diagnosis ICD10 Code Diagnosis Note [id number] Kevyn Seymour MD [facility] [address] [place] [address] 07/03/2023 15:40:15 07/10/2023 13:31:15 Increased frequency of urination 089053228 R35.0 - Obtain UroCuff - PVR today 117 mL - AUA SS: 25 (QOL 5) - We discussed the natural history of voiding dysfunctio n including primary bladder outlet obstructio n vs detrusor instabilit y vs combinatio n. We discussed the role of medication s in the management of BPH including alpha blockers, 5-THERESA, and anticholin ergics/bet a agonists including their mechanisms of action. --> Failed to anticholin ergics, we will trial Myrbetriq Urgent ngoc nazanin to urinate 93409020 R39.15 - As above Sensation as if urinary bladder still full 706251578 R39.14 - As above Nocturia 918892358 R35.1 - As above Primary er ectile dysfunction 049006118 N52.9 - Responding well to tadalafil [id number] MD THEO [facility] [address] [place] [address] 10/09/2023 12:35:09 10/10/2023 09:55:03 Increased frequency of urination 633255944 R35.0 [id number] MD THEO [facility] [address] [place] [address] 10/16/2023 09:08:40 10/17/2023 09:33:26 Increased frequency of urination 616644493 R35.0 - Obtain UroCuff - PVR 117 mL - AUA SS: 25 (QOL 5) - We discussed the natural history of voiding dysfunctio n including primary bladder outlet obstructio n vs detrusor instabilit y vs combinatio n. We discussed the role of medication s in the management of BPH including alpha blockers, 5-THERESA, and anticholin ergics/bet a agonists including their mechanisms of action. --> Failed to anticholin ergics, we will trial Myrbetriq Urgent ngoc nazanin to urinate 78606755 R39.15 - As above Sensation as if urinary bladder still full 854756419 R39.14 - As above Nocturia 472404499 R35.1 - As above Primary er ectile dysfunction 578941319 N52.9 - Responding well to tadalafil Lower urin hans tract symptoms due to benign prostatic hypertrophy 1191889310 9101 N40.1 [id number] MD THEO [facility] [address] [place] [address] 01/15/2024 09:46:28 01/16/2024 12:03:07 Increased frequency of urination 450219959 R35.0 - Obtain UroCuff - PVR 117 mL - AUA SS: 25 (QOL 5) - We discussed the natural history of voiding dysfunctio n including primary bladder outlet obstructio n vs detrusor instabilit y vs combinatio n. We discussed the role of medication s in the management of BPH including alpha blockers, 5-THERESA, and anticholin ergics/bet a agonists including their mechanisms of action. - Aquablatio n denied by insurance, will write appeal letter. If unable to get approved patient would be interested in [facility]. - Cystoscopy : Bilobar with intravesic al protrusion - TRUS volume: 47 cm Urgent ngoc nazanin to urinate 34286746 R39.15 - As above Sensation as if urinary bladder still full 122823202 R39.14 - As above Nocturia 767040000 R35.1 - As above Primary er ectile dysfunction 588077896 N52.9 - Responding well to tadalafil Lower urin hans tract symptoms due to benign prostatic hypertrophy 2129949550 9101 N40.1 [id number] Kevyn Seymour MD [facility] [address] [place] [address] 12/08/2024 16:48:40 12/09/2024 09:26:09 Lower urinary tract symptoms due to benign prostatic hypertrophy 6552114071 9101 N40.1 s/p prostate aquablatio n with Dr. Seymour on 12/06- unfortunat ammon, not able to adequately empty since being discharge home without diaz yesterday2 2F diaz replaced, hand irrigated for clotsWill keep diaz until next week then f/u on nursing schedule for TOV on 12/14Given cipro 500mg dose today Retention of urine 19516 4002 R33.9 Health Concerns Section Related Observation LastModified by Organization Detai ls LastModified Time None Recorded Concern Status LastModified by Organization Details LastModified Time None Recorded Advance Directives Directive None Recorded Payers Insurance Date Sequence Insurance Name Policy Number Policy Tang Covered Member ID Tang Member ID Guarantor Name 12/03/2024 1 [place] [id number] Arlin Romano [id number] Curly Collier 12/08/2024 1 [employer] - OPEN ACCESS CHOICE (HMO) Curly Collier [id number] Curly Collier Notes Date Note Type Note Provider Name and Address Organization Details Recorded Time 07/03/2023 text/html Mr. Collier is a 62-year-old gentleman who previously followed with me at our [facility] for urinary frequency, urinary urgency, erectile dysfunction, and ejaculatory dysfunction in the setting of diabetes mellitus. We had started tadalafil which is helped with his erections. We have also tried and failed 2 different anticholinergics due to side effects though he does state that he feels like this was helping with his urination. He is here to reestablish care Kevyn Seymour MD [address] [place] [address],[address], [place], [address], [facility] 07/03/2023 17:37:23 10/16/2023 text/html Mr. Collier is a 63-year-old gentleman who previously followed with me at our [facility] for urinary frequency, urinary urgency, erectile dysfunction, and ejaculatory dysfunction in the setting of diabetes mellitus. We had started tadalafil which is helped with his erections. We have also tried and failed 2 different anticholinergics due to side effects though he does state that he feels like this was helping with his urination. He is here to reestablish care 10/16/2023:Here for follow up urinary frequency, urinary urgency, erectile dysfunction, and ejaculatory dysfunction in the setting of diabetes mellitus. Underwent UroCuff available for my interpretation... evidence of obstruction with bladder decompensation. Prior to conducting our telephone visit, the patient was apprised of the risks, benefits and alternatives to telephone visits including but not limited to poor audio quality, interrupted visits due to technological limitations, delays in medical evaluation and treatment due to deficiencies or failures of equipment, failure of security protocols resulting in a breach of privacy of personal medical information and a lack of access to complete medical records resulting in not fully informed. It was not possible for the patient to sign the privacy regulations, HIPAA release and assignment of benefits forms. The patient was given the opportunity to ask questions about these policies and gave verbal acknowledgement and approval of these policies as well as to hold this meeting by telephone. Lastly, the patient agreed to allowing their medication history to be pulled from a national pharmacy database to facilitate and coordinate their care. Kevyn Seymour MD [address] [place] [address],[address], [place], [address], [facility] 10/16/2023 10:16:53 01/15/2024 text/html Mr. Collier is a 63-year-old gentleman who previously followed with me at our [facility] for urinary frequency, urinary urgency, erectile dysfunction, and ejaculatory dysfunction in the setting of diabetes mellitus. We had started tadalafil which is helped with his erections. We have also tried and failed 2 different anticholinergics due to side effects though he does state that he feels like this was helping with his urination. He is here to reestablish care 10/16/2023:Here for follow up urinary frequency, urinary urgency, erectile dysfunction, and ejaculatory dysfunction in the setting of diabetes mellitus. Underwent UroCuff available for my interpretation... evidence of obstruction with bladder decompensation. 01/15/2024:Here for follow up urinary frequency, urinary urgency, erectile dysfunction, and ejaculatory dysfunction in the setting of diabetes mellitus. Here for cystoscopy and TRUS volume study. Kevyn Seymour MD [address], [place], [address], [facility] 01/15/2024 10:51:46 12/08/2024 text/html Pt is s/p prosta te [...] numerous moderately sized clots. RITIKA BARNES [address], [place], [address], [facility] 12/09/2024 12:32:14
== END 2024-12-09 19:29 | disposition home or self-care (01) ==
LOC: ED 19:18
PROVIDERS: Emergency Provider Family Medicine; PCP Family Medicine
DX: T83.091A Other mechanical complication of indwelling urethral catheter, initial encounter (principal)
CPT/HCPCS: 51798; 99282; 99283